=== PATIENT | female | born 1980 | race Asian ===

== ENCOUNTER 2018-06-22 12:11 | Inpatient (IN) | payer BC ==
[2018-07-18] MEDS ORDERED: OXYTOCIN 30 UNITS/LR 500 ML IV ×4 (06:00→09:21)
[2018-07-18] MEDS ORDERED: METHYLERGONOVINE 0.2 MG INJ IM ×2 (06:00→08:00)
[2018-07-18] MEDS ORDERED: CARBOPROST 250 MCG INJ IM ×2 (06:00→08:00)
[2018-07-18] MEDS ORDERED: MISOPROSTOL 200 MCG TAB PR ×2 (06:00→08:00)
[2018-07-18] MEDS ORDERED: CEFAZOLIN 2 GM/50 ML (PMX) 50 ML IVPB (06:00)
[2018-07-18] MEDS: LACTATED RINGER'S 1,000 ML IV ×3 (06:23→21:04)
[2018-07-18 06:29] LABS: ADD MAN DIFF? NO
[2018-07-18 06:37] LABS: BASOPHIL # 0.1 10^3/ul (0.0-0.1); BASOPHILS % 0.6 % (0.0-2.0); EOSINOPHILS # 0.1 10^3/ul (0.0-0.5); EOSINOPHILS % 0.8 % (0.0-7.0); HEMOGLOBIN 12.1 g/dl (12.0-16.0); LYMPHOCYTES % 18.4 % (15.0-51.0); MEAN CORPUSCULAR HEMOGLOBIN 28.5 pg (29.0-33.0); MEAN CORPUSCULAR HGB CONC 32.7 g/dl (32.0-37.0); MEAN CORPUSCULAR VOLUME 87.1 fl (82.0-101.0); MEAN PLATELET VOLUME 9.6 fl (7.4-10.4); MONOCYTE # 1.4 10^3/ul (0.3-0.9); MONOCYTES % 8.7 % (0.0-11.0); NEUTROPHIL # 11.3 10^3/ul (1.6-7.5); NEUTROPHILS % 69.3 % (39.0-77.0); PLATELET COUNT 271 10^3/UL (140-415); RED BLOOD COUNT 4.25 10^6/ul (4.20-5.40); RED CELL DISTRIBUTION WIDTH 14.3 % (11.5-14.5)
[2018-07-18 06:37] LABS: WHITE BLOOD COUNT 16.2 10^3/ul (4.8-10.8)
[2018-07-18 06:48] LABS: INR 0.84; PROTIME 11.6 Sec (11.9-14.9); PT RATIO 0.9
[2018-07-18 06:49] LABS: PARTIAL THROMBOPLASTIN TIME 28.3 Sec (23.0-35.0)
[2018-07-18] MEDS: CITRIC ACID/NA CITRATE 30 ML CUP PO (07:30)
[2018-07-18 07:36] LABS: HEPATITIS B SURFACE ANTIGEN NEGATIVE (NEGATIVE)
[2018-07-18] MEDS ORDERED: ONDANSETRON 4 MG INJ (07:52)
[2018-07-18] MEDS ORDERED: morphine SULFATE/PF (10 MG/10 ML) INJ (07:52)
[2018-07-18] MEDS ORDERED: METOCLOPRAMIDE 10 MG INJ (07:52)
[2018-07-18] MEDS ORDERED: KETOROLAC 30 MG INJ (07:52)
[2018-07-18] MEDS ORDERED: NA PHOSPHATE/BIPHOS 133 ML ENEMA PR (08:00)
[2018-07-18] MEDS ORDERED: METHYLERGONOVINE 0.2 MG TAB PO (08:00)
[2018-07-18] MEDS ORDERED: HYDROCODONE/APAP (5/325) TAB PO ×2 (08:00)
[2018-07-18] MEDS ORDERED: PHENYLephrine (100 MCG/ML) 10ML SYG (08:10)
[2018-07-18] MEDS ORDERED: FENTAnyl 50 MCG/ML VIAL (08:55)
[2018-07-18] MEDS: SENNA/DOCUSATE NA (8.6MG/50MG) TAB PO ×2 (09:00→21:09)
[2018-07-18] MEDS: OXYTOCIN 30 UNITS/LR 500 ML IV (09:38)
[2018-07-18] MEDS ORDERED: morphine (1 MG/ML) 10ML SYRINGE IV ×3 (10:00)
[2018-07-18] MEDS ORDERED: DIPHENHYDRAMINE 50 MG INJ IV ×2 (10:00)
[2018-07-18] MEDS ORDERED: ONDANSETRON 4 MG INJ IV ×2 (10:00)
[2018-07-18] MEDS ORDERED: KETOROLAC 30 MG INJ IV ×2 (10:00)
[2018-07-18] MEDS ORDERED: NALOXONE (0.4 MG/ML) INJ IV (10:00)
[2018-07-18] MEDS ORDERED: morphine 2 MG INJ IV ×3 (10:00)
[2018-07-18] MEDS: IBUPROFEN 800 MG TAB PO ×2 (14:00→22:00)
[2018-07-18] MEDS: CEFAZOLIN 2 GM/50 ML (PMX) 50 ML IVPB ×3 (15:17→23:21)
[2018-07-18] MEDS: KETOROLAC 30 MG INJ IV ×3 (16:00→22:00)
[2018-07-18 22:11] LABS: RAPID PLASMA REAGIN NONREACTIVE (NR)
[2018-07-19] MEDS: KETOROLAC 30 MG INJ IV ×4 (04:58→21:46)
[2018-07-19] MEDS ORDERED: CEFAZOLIN 2 GM/50 ML (PMX) 50 ML IVPB (05:51)
[2018-07-19] MEDS: IBUPROFEN 800 MG TAB PO ×3 (06:00→21:37)
[2018-07-19] MEDS: CEFAZOLIN 2 GM/50 ML (PMX) 50 ML IVPB (06:21)
[2018-07-19 08:25] LABS: ADD MAN DIFF? NO
[2018-07-19 08:34] LABS: WHITE BLOOD COUNT 17.5 10^3/ul (4.8-10.8)
[2018-07-19 08:34] LABS: ABNORMAL IP MESSAGE 1; BASOPHIL # 0.1 10^3/ul (0.0-0.1); BASOPHILS % 0.3 % (0.0-2.0); EOSINOPHILS # 0.1 10^3/ul (0.0-0.5); EOSINOPHILS % 0.3 % (0.0-7.0); HEMATOCRIT 33.2 % (37.0-47.0); HEMOGLOBIN 10.7 g/dl (12.0-16.0); LYMPHOCYTES # 1.7 10^3/ul (0.8-2.9); LYMPHOCYTES % 9.7 % (15.0-51.0); MEAN CORPUSCULAR HEMOGLOBIN 28.2 pg (29.0-33.0); MEAN CORPUSCULAR HGB CONC 32.2 g/dl (32.0-37.0); MEAN CORPUSCULAR VOLUME 87.6 fl (82.0-101.0); MEAN PLATELET VOLUME 9.8 fl (7.4-10.4); MONOCYTE # 1.5 10^3/ul (0.3-0.9); MONOCYTES % 8.8 % (0.0-11.0); PLATELET COUNT 243 10^3/UL (140-415); RED BLOOD COUNT 3.79 10^6/ul (4.20-5.40)
[2018-07-19] MEDS: SENNA/DOCUSATE NA (8.6MG/50MG) TAB PO ×2 (08:35→21:00)
[2018-07-19 08:40] LABS: POSITIVE DIFF @See below
[2018-07-19] MEDS: INFLUENZA VIRUS VACCINE 0.5 ML (DISPENSING) IM* (10:00)
[2018-07-19] MEDS: CEPHALEXIN 500 MG CAP PO ×3 (12:03→23:49)
[2018-07-19] MEDS: BISACODYL (EC) 5 MG TAB PO (12:03)
[2018-07-19] MEDS: LANOLIN HPA 1 PKT TOP (21:38)
[2018-07-20] MEDS: KETOROLAC 30 MG INJ IV ×4 (04:00→21:28)
[2018-07-20] MEDS: CEPHALEXIN 500 MG CAP PO ×4 (05:52→23:43)
[2018-07-20] MEDS: IBUPROFEN 800 MG TAB PO (05:53)
[2018-07-20] MEDS: SENNA/DOCUSATE NA (8.6MG/50MG) TAB PO ×2 (09:00→21:00)
[2018-07-20] MEDS: IBUPROFEN 600 MG TAB PO ×3 (12:17→23:43)
[2018-07-20 12:21] LABS: ADD MAN DIFF? NO
[2018-07-20 12:28] LABS: BASOPHIL # 0.1 10^3/ul (0.0-0.1); BASOPHILS % 0.3 % (0.0-2.0); EOSINOPHILS # 0.2 10^3/ul (0.0-0.5); HEMATOCRIT 35.2 % (37.0-47.0); HEMOGLOBIN 11.3 g/dl (12.0-16.0); LYMPHOCYTES # 1.8 10^3/ul (0.8-2.9); LYMPHOCYTES % 12.2 % (15.0-51.0); MEAN CORPUSCULAR HEMOGLOBIN 28.8 pg (29.0-33.0); MEAN CORPUSCULAR HGB CONC 32.1 g/dl (32.0-37.0); MEAN CORPUSCULAR VOLUME 89.8 fl (82.0-101.0); MEAN PLATELET VOLUME 9.3 fl (7.4-10.4); MONOCYTE # 1.1 10^3/ul (0.3-0.9); MONOCYTES % 7.9 % (0.0-11.0); NEUTROPHIL # 11.1 10^3/ul (1.6-7.5); NEUTROPHILS % 77.5 % (39.0-77.0); PLATELET COUNT 277 10^3/UL (140-415); RED BLOOD COUNT 3.92 10^6/ul (4.20-5.40); RED CELL DISTRIBUTION WIDTH 13.9 % (11.5-14.5)
[2018-07-20 12:28] LABS: WHITE BLOOD COUNT 14.4 10^3/ul (4.8-10.8)
[2018-07-20] MEDS: LANOLIN HPA 1 PKT TOP (15:34)
[2018-07-21] MEDS: IBUPROFEN 600 MG TAB PO ×2 (05:48→12:09)
[2018-07-21] MEDS: CEPHALEXIN 500 MG CAP PO ×2 (05:48→12:09)
[2018-07-21] MEDS: MEASLES,MUMPS,RUBELLA VACCINE INJ SC* (09:00)
[2018-07-21] MEDS: SENNA/DOCUSATE NA (8.6MG/50MG) TAB PO (09:00)
[2018-07-21] MEDS: DIPHTH/TET/ACEL PERTUSS (ADULT) 0.5 ML VIAL IM* (11:04)
== END 2018-07-21 17:27 | disposition home or self-care (01) | DRG 788 ==
LOC: L-D 12:11 → PP1 07-19 08:10 → L-D 07-18 08:01 → PP1 07-18 12:17
PROVIDERS: Obstetrics & Gynecology
PROC: 10D00Z1 Extraction of Products of Conception, Low, Open Approach (ICD-10-PCS; principal; 2018-07-18 07:30)
DX: O34.211 Maternal care for low transverse scar from previous cesarean delivery (principal); O34.13 Maternal care for benign tumor of corpus uteri, third trimester; O24.419 Gestational diabetes mellitus in pregnancy, unspecified control; Z3A.37 37 weeks gestation of pregnancy; Z37.0 Single live birth
CPT/HCPCS: 85025; 85610; 85730; 86592; 86850; 86870; 86900; 86901; 87340; 90686; 90715; 99464

== ENCOUNTER 2018-06-22 12:17 | Outpatient (CLI) | payer BC | END 2018-06-22 14:40 | disposition home or self-care (01) | LOC: OBT 12:17 → L-D 12:17 → OBT 14:40 | DX: O40.3XX0 Polyhydramnios, third trimester, not applicable or unspecified (principal); O09.523 Supervision of elderly multigravida, third trimester; Z3A.36 36 weeks gestation of pregnancy | CPT/HCPCS: 76818 ==

== ENCOUNTER → 2018-12-28 | Outpatient (CLI) | payer BC ==
[2018-12-28 16:25] LABS: WHITE BLOOD COUNT 7.3 10^3/ul (4.8-10.8)
[2018-12-28 16:25] LABS: ADD MAN DIFF? NO; BASOPHILS % 0.5 % (0.0-2.0); EOSINOPHILS # 0.1 10^3/ul (0.0-0.5); EOSINOPHILS % 1.6 % (0.0-7.0); HEMOGLOBIN 13.9 g/dl (12.0-16.0); LYMPHOCYTES % 26.6 % (15.0-51.0); MEAN CORPUSCULAR HEMOGLOBIN 27.1 pg (29.0-33.0); MEAN CORPUSCULAR HGB CONC 32.3 g/dl (32.0-37.0); MEAN CORPUSCULAR VOLUME 83.8 fl (82.0-101.0); MEAN PLATELET VOLUME 9.3 fl (7.4-10.4); MONOCYTE # 0.6 10^3/ul (0.3-0.9); MONOCYTES % 7.8 % (0.0-11.0); NEUTROPHIL # 4.6 10^3/ul (1.6-7.5); NEUTROPHILS % 63.2 % (39.0-77.0); PLATELET COUNT 335 10^3/UL (140-415); RED BLOOD COUNT 5.13 10^6/ul (4.20-5.40); RED CELL DISTRIBUTION WIDTH 13.2 % (11.5-14.5)
[2018-12-28 16:38] LABS: ADD UMIC NO; UR ASCORBIC ACID NEGATIVE (NEGATIVE); UR BILIRUBIN (Dip) NEGATIVE (NEGATIVE); UR BLOOD (Dip) NEGATIVE (NEGATIVE); UR CLARITY SLIGHTLY CLOUDY (CLEAR); UR COLOR YELLOW (YELLOW); UR GLUCOSE (Dip) NEGATIVE (NEGATIVE); UR KETONES (Dip) NEGATIVE (NEGATIVE); UR LEUKOCYTE ESTERASE (Dip) NEGATIVE Leu/ul (NEGATIVE); UR MUCUS MANY /HPF (NONE SEEN); UR NITRITE (Dip) NEGATIVE (NEGATIVE); UR RBC 0 /HPF (0-5); UR SPECIFIC GRAVITY (Dip) 1.026 (1.003-1.030); UR SQUAMOUS EPITHELIAL CELL FEW /HPF (FEW); UR TOTAL PROTEIN (Dip) NEGATIVE (NEGATIVE); UR UROBILINOGEN (Dip) NEGATIVE (NEGATIVE); UR WBC 1 /HPF (0-5)
[2018-12-28 16:43] LABS: ALANINE AMINOTRANSFERASE 19 IU/L (13-69); ALBUMIN 4.4 g/dl (3.3-4.9); ALBUMIN/GLOBULIN RATIO 1.25; ALKALINE PHOSPHATASE 64 IU/L (42-121); AMYLASE 108 U/L (11-123); ANION GAP 8 (5-13); ASPARTATE AMINO TRANSFERASE 22 IU/L (15-46); BILIRUBIN,INDIRECT 1.3 mg/dl (0-1.1); BILIRUBIN,TOTAL 1.3 mg/dl (0.2-1.3); BLOOD UREA NITROGEN 12 mg/dl (7-20); CALCIUM 9.2 mg/dl (8.4-10.2); CARBON DIOXIDE 26 mmol/L (21-31); CHLORIDE 107 mmol/L (97-110); CHOL/HDL RATIO 3.6 RATIO; CHOLESTEROL 173 mg/dl (100-200); CREATININE 0.65 mg/dl (0.44-1.00); Estimated GFR > 60 mL/min (>60); GLUCOSE 98 mg/dl (70-220); HDL CHOLESTEROL 47 mg/dl (34-82); LDL CHOLESTEROL,CALCULATED 107 mg/dl; LIPASE 63 U/L (23-300); POTASSIUM 4.3 mmol/L (3.5-5.1); SODIUM 141 mmol/L (135-144); TOTAL PROTEIN 7.9 g/dl (6.1-8.1); TRIGLYCERIDES 97 mg/dl (0-149)
[2018-12-28 17:28] LABS: ERYTHROCYTE SEDIMENTATION RATE 3 mm/Hr (0-20)
== END | disposition home or self-care (01) ==
LOC: LAB 15:53
DX: R10.12 Left upper quadrant pain (principal); E78.5 Hyperlipidemia, unspecified; E55.9 Vitamin D deficiency, unspecified
CPT/HCPCS: 80053; 80061; 81001; 81003; 82150; 82652; 83690; 84703; 85025; 85651; 87086

== ENCOUNTER → 2019-01-02 | Outpatient (CLI) | payer BC ==
[2019-01-02] MEDS: SOD CHLORIDE 0.9% 100 ML (08:32)
[2019-01-02] MEDS: IOHEXOL 300MG/ML 150 ML BTL (08:38)
== END | disposition home or self-care (01) ==
LOC: C/S 07:46
DX: R10.12 Left upper quadrant pain (principal); R07.9 Chest pain, unspecified
CPT/HCPCS: 71046; 74170